=== PATIENT | female | born 1990 | race Two or more races ===

== ENCOUNTER 2019-05-12 20:12 | Inpatient (IN) | payer MEDICAID ==
[~2019-05-12] VITALS: Ht 149.9 cm; Wt 84.4 kg
--- NOTE | 2019-05-12 20:20 | NUR ---
OK TO TAKE PT TO L&D PER ORLANDO
[2019-05-12] MEDS ORDERED: MAG SULF 20 GM/H2O PREMIX DRIP 500 ML IV SCH ×2 (21:40)
[2019-05-12] MEDS ORDERED: LACTATED RINGERS 1,000 ML IV SCH (22:00)
[2019-05-12] MEDS ORDERED: MAG SULF 20 GM/H2O PREMIX DRIP 500 ML IV ONE (22:02)
[2019-05-12 22:19] LABS: BASOPHILS % (AUTO) 0.5 % (0.0-2.0); EOSINOPHILS % (AUTO) 0.5 % (0.0-4.0); HEMATOCRIT 35.5 % (36-48); HEMOGLOBIN 11.8 g/dL (12.0-16.0); LYMPHOCYTES % (AUTO) 26.8 % (20.5-51.1); MEAN CORPUSCULAR HEMOGLOBIN 27 pg (27-31); MEAN CORPUSCULAR HGB CONC 33 g/dL (33-37); MEAN CORPUSCULAR VOLUME 80.4 fL (80-94); MONOCYTES # (AUTO) 0.5 K/uL (0.8-1.0); MONOCYTES % (AUTO) 6.7 % (1.7-9.3); NEUTROPHILS # (AUTO) 4.8 K/uL (1.8-7.7); NEUTROPHILS % (AUTO) 65.5 % (42.2-75.2); PLATELET COUNT (AUTO) 48 K/uL (140-450); RED BLOOD CELL COUNT(AUTO) 4.41 MIL/uL (4.20-5.40); RED CELL DISTRIBUTION WIDTH 15.8 % (11.6-13.7); WHITE BLOOD COUNT (AUTO) 7.3 K/uL (4.8-10.8)
[2019-05-12 22:26] LABS: APPEARANCE,URINE CLEAR (CLEAR); BILIRUBIN,URINE NEGATIVE (NEGATIVE); BLOOD, URINE TRACE-I (NEGATIVE); COLOR,URINE YELLOW (YELLOW); LEUKOCYTE ESTERASE ,URINE NEGATIVE (NEGATIVE); NITRITE, URINE NEGATIVE (NEGATIVE); PH,URINE 6.5 (5.0-9.0); UGLUCOSE NEGATIVE (NEGATIVE)
[2019-05-12] MEDS ORDERED: BETAMETH ACET/BETAMETH NA PH 30 MG/5 ML VIAL IM ONE (22:30)
[2019-05-12 22:36] LABS: ALBUMIN 2.1 g/dL (3.4-5.0); ANION GAP 14.9 (8-16); CARBON DIOXIDE 22.4 mmol/L (21-32); CREATININE 0.8 mg/dL (0.6-1.3); POTASSIUM 4.3 mmol/L (3.5-5.1); TOTAL BILIRUBIN 0.2 mg/dL (0.0-1.0); URIC ACID 6.1 mg/dL (2.6-7.2)
[2019-05-12 23:16] LABS: RBC,URINE 0-5 /HPF (0-5); WBC,URINE 0-5 /HPF (0-5)
[2019-05-13] MEDS ORDERED: BETAMETH ACET/BETAMETH NA PH 30 MG/5 ML VIAL IM ONE
[2019-05-13] MEDS ORDERED: LABETALOL 100 MG/20 ML VIAL ONE (00:11)
[2019-05-13 02:41] VITALS: BP 168/104
[2019-05-13] MEDS ORDERED: LABETALOL 100 MG/20 ML VIAL IV SCH (03:00)
== END 2019-05-13 00:53 | disposition short-term general hospital (02) | DRG 566 ==
LOC: MED 20:12 → OBSVTOIN 20:30 → MLD 20:30
PROVIDERS: ADMIT Obstetrics & Gynecology; ATTEND Obstetrics & Gynecology
DX: O99.613 Diseases of the digestive system complicating pregnancy, third trimester (principal); D69.6 Thrombocytopenia, unspecified; D70.9 Neutropenia, unspecified; E11.9 Type 2 diabetes mellitus without complications; K76.0 Fatty (change of) liver, not elsewhere classified; O99.113 Other diseases of the blood and blood-forming organs and certain disorders involving the immune mechanism complicating pregnancy, third trimester; Z3A.32 32 weeks gestation of pregnancy; O24.113 Pre-existing type 2 diabetes mellitus, in pregnancy, third trimester; Z83.3 Family history of diabetes mellitus; Z82.49 Family history of ischemic heart disease and other diseases of the circulatory system; O99.214 Obesity complicating childbirth
CPT/HCPCS: 36415; 80053; 81001; 84550; 85025; J0702; J3475; J3490